=== PATIENT | female | born 1930 | race Caucasian/White ===

== ENCOUNTER → 2016-11-21 | Outpatient (CLI) | payer MEDICARE, OTHER ==
[~2016-11-21] MED LIST: ASPI-630 PO; CALC667C6 PO; CHOL10003 PO; MULT-208 PO
[2016-11-22 01:07] LABS: HEMOGLOBIN A1C 5.4 % (4.8-5.6)
== END | disposition home or self-care (01) ==
LOC: SPEC 07:55
PROVIDERS: ATTEND Family Medicine
DX: Z00.01 Encounter for general adult medical examination with abnormal findings (principal); R73.01 Impaired fasting glucose
CPT/HCPCS: 36415; 80061; 83036

== ENCOUNTER → 2020-02-19 | Outpatient (CLI) | payer MEDICARE ==
--- NOTE | 2020-02-19 17:11 | RAD ---
CT HEAD WO CONTRAST History: Reason: NONTRAUAMATIC INTACEREBRAL HEMORRAHAGE / Spl. Instructions: / History: Comparison: MRI December 23, 2014 Technique: Noncontrast CT imaging was performed of the head. Exposure: One or more of the following individualized dose reduction techniques were utilized for this examination: 1. Automated exposure control 2. Adjustment of the mA and/or kV according to patient size 3. Use of iterative reconstruction technique. Findings: No intracranial hemorrhage. No mass effect. No hydrocephalus. Subtle hyperdensity within the left frontal cortex (series 2 image 19). Mild brain parenchymal volume loss. Mild foci of decreased attenuation within the hemispheric white matter, most often due to chronic microvascular ischemia. Imaged orbits are unremarkable. Imaged paranasal sinuses and mastoid air cells are clear. No acute calvarial fracture. TMJ arthropathy. Impression: 1. Subtle hyperdensity within the left frontal cortex, may represent artifact or lesion. Recommend comparison with more recent prior imaging studies. If prior imaging studies are not available, recommend MRI with and without contrast. Electronically signed by: Thomas Dasilva DO (02/19/2020 5:08 PM) [facility]
== END ==
LOC: RAD 16:19
PROVIDERS: ATTEND Specialist
DX: I67.82 Cerebral ischemia (principal); M26.659 Arthropathy of unspecified temporomandibular joint; I61.6 Nontraumatic intracerebral hemorrhage, multiple localized
CPT/HCPCS: 70450

== ENCOUNTER 2020-11-04 15:44 | Emergency (ER) | payer MEDICARE ==
--- NOTE | 2020-11-04 16:02 | PHYS DOC ---
Adult General [facility] HPI Patient is a 89-year-old female presenting by PCP recommendation for left lower extremity ultrasound. She has had medial and posterior left lower extremity pain that has been going on for years and has been increasingly symptomatic. 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 As such, per protocol, all sisters at the [facility] were tested and so, she cannot have outpatient ultrasound performed. Patient has no symptoms and no contact with said infected nurse; however, she cannot have her outpatient ultrasound performed given her PUI status. Denies any fever or shortness of breath or other concerning symptoms Review of Systems Review of Systems Fourteen body systems of review of systems have been reviewed. See HPI for pertinent positives and negative responses, other mckeon all other systems are negative, non-pertinent or non-contributory Allergies Allergies Allergies Coded Allergies Type Severity Reaction Last Updated Verified No Known Drug Allergies 12/23/14 No Physical Exam Physical Exam Constitutional: Well developed, well nourished, no acute distress, non-toxic appearance. HENT: Normocephalic, atraumatic, bilateral external ears normal, oropharynx moist, no oral exudates, nose normal. Eyes: PERRLA, EOMI, conjunctiva normal, no discharge. Neck: Normal range of motion, no tenderness, supple, no stridor. Cardiovascular: Heart rate regular, sinus rhythm, no murmurs rubs or gallops Lungs & Thorax: Bilateral breath sounds clear to auscultation Abdomen: Bowel sounds normal, soft, no tenderness, no masses, no pulsatile masses. Nonsurgical abdomen, no peritoneal signs Skin: Warm, dry, no erythema, no rash. Back: No tenderness, no CVA tenderness. Extremities: Palpable cordlike vein present on the medial portion of left lower extremity consistent with thrombophlebitis versus DVT, no cyanosis, no clubbing, ROM intact, no edema. Neurologic: Alert and oriented X 3, grossly normal motor & sensory function, no focal deficits noted. Psychologic: Affect normal, judgement normal, mood normal. EKG EKG [] Radiology/Procedures Radiology/Procedures EXAM: Left lower extremity venous Doppler sonogram. HISTORY: Pain and swelling. TECHNIQUE: Song scale and color Doppler sonographic evaluation of the left lower extremity veins with spectral waveform analysis was performed. FINDINGS: There is normal color flow, normal compressibility and there are normal spectral waveforms in the common femoral, superficial femoral, popliteal, posterior tibial and greater saphenous veins. There are multiple varicose veins within the left lower extremity. IMPRESSION: No Doppler evidence of lower extremity deep or superficial venous thrombosis. Electronically signed by: Belkys Parks MD (11/04/2020 4:28 PM) [id number] Heart Score C/O Chest Pain: No Risk Factors: Risk Factors: DM, Current or recent (<one month) smoker, HTN, HLP, family history of CAD, obesity. Risk Scores: Risk Factors: DM, Current or recent (<one month) smoker, HTN, HLP, family history of CAD, obesity. Course & Med Decision Making Course & Med Decision Making ABCs unremarkable. I disclosed entirety of ER findings and discussed most likely diagnosis of symptomatic engorged vein without any DVT or SVT. No indication f or any further diagnostic work-up in ER setting, continued supportive care advised. I stressed need for close outpatient follow-up to review today's ER visit. Strict return precautions were also discussed at length with good understanding by patient. Patient voiced understanding and agreement with the plan. Patient knows to come back for repeat evaluation if concerning signs or symptoms present prior to outpatient follow-up. Hemodynamically stable, ambulatory and well-appearing at time of disposition. Dragon Disclaimer Dragon Disclaimer This electronic medical record was generated, in whole or in part, using a voice recognition dictation system. Departure Departure: Impression: Primary Impression: Thrombophlebitis Disposition: HOME / SELF CARE / HOMELESS Condition: STABLE Referrals: WESLEY TRUJILLO MD (PCP) Additional Instructions: As discussed prior to your departure, your vital signs, physical examination and ultrasonography of your left lower extremity were nonconcerning for any emergent issues such as deep vein thrombosis otherwise known as a deep vein blo od clot. There is no obvious infection or other signs or symptoms deeming need for antibiotic use. As discussed, such issues should be treated with compression, elevation, pain control with Tylenol and NSAIDs if you do not have prior history of kidney or coronary artery disease. You need to contact your primary care provider and discuss ER visit today and next steps in care. You have a history of bleeding and so, there is no indication for anticoagulation at this time. If any concerning signs or symptoms present prior to outpatient follow-up please do not hesitate to come back for repeat evaluation. It was a pleasure to take care of you and I wish you the best going forward VETO ROLLINS DO Nov 04, 2020 16:02
--- NOTE | 2020-11-04 16:30 | RAD ---
EXAM: Left lower extremity venous Doppler sonogram. HISTORY: Pain and swelling. TECHNIQUE: Song scale and color Doppler sonographic evaluation of the left lower extremity veins with spectral waveform analysis was performed. FINDINGS: There is normal color flow, normal compressibility and there are normal spectral waveforms in the common femoral, superficial femoral, popliteal, posterior tibial and greater saphenous veins. There are multiple varicose veins within the left lower extremity. IMPRESSION: No Doppler evidence of lower extremity deep or superficial venous thrombosis. Electronically signed by: Belkys Parks MD (11/04/2020 4:28 PM) [id number]
== END 2020-11-04 17:46 | disposition home or self-care (01) ==
LOC: ER 15:44
DX: I80.3 Phlebitis and thrombophlebitis of lower extremities, unspecified (principal); R22.42 Localized swelling, mass and lump, left lower limb
CPT/HCPCS: 93971; 99284-25